=== PATIENT | female | born 1995 | race American Indian/Alaskan Native ===

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

== ENCOUNTER 2018-07-02 16:02 | Emergency (ER) | payer SELFPAY ==
[2018-07-02 17:30] LABS: Basophils % (Auto) 0.3 % (0.0-1.8); Eosinophils # (Auto) 0.4 K/mm3 (0.0-0.4); Eosinophils % (Auto) 5.5 % (0.0-4.3); Hematocrit 39.1 % (30.3-42.9); Hemoglobin 13.2 gm/dl (10.1-14.3); Lymphocytes # (Auto) 2.5 K/mm3 (1.2-5.4); Lymphocytes % (Auto) 32.8 % (13.4-35.0); Mean Corpuscular HGB Conc 34 % (30-34); Mean Corpuscular Hemoglobin 31 pg (28-32); Mean Corpuscular Volume 92 fl (79-97); Monocytes # (Auto) 0.6 K/mm3 (0.0-0.8); Monocytes % (Auto) 8.1 % (0.0-7.3); Platelet Count 237 K/mm3 (140-440); Red Blood Count 4.25 M/mm3 (3.65-5.03); Red Cell Distribution Width 12.5 % (13.2-15.2)
[2018-07-02 17:31] LABS: HCG Qualitative,Urine Negative (Negative)
[2018-07-02 17:33] LABS: Bilirubin,Urine NEG (Negative); Blood,Urine NEG (Negative); Color,Urine Yellow (Yellow); Mucus,Urine FEW /HPF; Protein,Urine <15 mg/dL mg/dL (Negative); Urobilinogen,Urine < 2.0 mg/dL (<2.0)
[2018-07-02 17:38] LABS: BUN/Creatinine Ratio 10; Blood Urea Nitrogen 7 mg/dL (7-17); Calcium 9.3 mg/dL (8.4-10.2); Hemolysis Index 11
--- NOTE | 2018-07-02 18:24 | Emergency Department Report ---
HPI - General Chief Complaint: Abdominal Pain Time Seen by Provider: 07/02/18 16:54 - HPI HPI: 22-year-old [place] female presents to the emergency department with some pelvic pain has been going on for intermittently over the past 3 weeks but worsening over the past few days. The patient says that she missed her last menstrual cycle but usually does have abnormal cycles. She denies any vaginal bleeding, vaginal discharge, dysuria, fever, nausea or vomiting. She denies being sexually active. She denies any other past medical history. She has not taken anything for her symptoms prior to presentation. No recent travel or sick contacts at home. ED Past Medical Hx - Past Medical History Hx Psychiatric Treatment: Yes (Anxiety) - Social History Smoking Status: Never Smoker Substance Use Type: None - Medications Home Medications: Home Medications Medication Instructions Recorded Confirmed Last Taken Type No Known Home Medications [No 07/02/18 07/02/18 Unknown History Reported Home Medications] ED Review of Systems ROS: Stated complaint: PELVIC PAIN/MISSED PERIOD Other details as noted in HPI Comment: All other systems reviewed and negative Constitutional: denies: chills, fever Eyes: denies: eye pain, eye discharge, vision change ENT: denies: ear pain, throat pain Respiratory: denies: cough, shortness of breath, wheezing Cardiovascular: denies: chest pain, palpitations Gastrointestinal: denies: nausea, vomiting Genitourinary: other (pelvic pain). denies: dysuria, discharge Musculoskeletal: denies: back pain, joint swelling, arthralgia Skin: denies: rash, lesions Neurological: denies: headache, weakness, paresthesias Physical Exam - Physical Exam Vital Signs: Vital Signs 07/02/18 16:06 Temperature 98.5 F Pulse Rate 64 Respiratory 16 Rate Blood Pressure 95/66 O2 Sat by Pulse 96 Oximetry Physical Exam: GENERAL: The patient is well-developed well-nourished. HENT: Normocephalic. Atraumatic. Patient has moist mucous membranes. EYES: Extraocular motions are intact. Pupils equal reactive to light bilaterally. NECK: Supple. Trachea is midline. CHEST/LUNGS: Clear to auscultation. There is no respiratory distress noted. HEART/CARDIOVASCULAR: Regular. There is no tachycardia. There is no murmur. ABDOMEN: Abdomen is soft. No abdominal tenderness to palpation but there is some pain to the upper pelvis. No guarding. Patient has normal bowel sounds. There is no abdominal distention. SKIN: Skin is warm and dry. NEURO: The patient is awake, alert, and oriented. The patient is cooperative. The patient has no focal neurologic deficits. The patient has normal speech. MUSCULOSKELETAL: There is no tenderness or deformity. There is no limitation range of motion. There is no evidence of acute injury. ED Course Vital Signs 07/02/18 16:06 Temperature 98.5 F Pulse Rate 64 Respiratory 16 Rate Blood Pressure 95/66 O2 Sat by Pulse 96 Oximetry ED Medical Decision Making - Lab Data Result diagrams: 07/02/18 17:07 07/02/18 17:07 - Radiology Data Radiology results: report reviewed EXAM: US TRANSVAGINAL HISTORY: pelvic pain TECHNIQUE: Transvaginal grayscale and color-flow imaging of the pelvis was performed. Comparison: Transabdominal study also performed today FINDINGS: The uterus measures 6.4 centimeters x 2.8 centimeters x 4.2 centimeters and is unremarkable in appearance. Endometrial thickness measures 14 millimeters. The right ovary measures 4.1 centimeters x 1.8 centimeters x 2.9 centimeters and is unremarkable in appearance. The left ovary measures 3.5 centimeters x 2.3 centimeters x 2.7 centimeters and contains a dominant follicle or possible corpus luteum cyst that measures approximately 1.7 centimeter in the maximal dimension. A trace amount of free fluid is demonstrated in the cul-de-sac. IMPRESSION: 1. Ultrasound pelvis within normal limits. Transcribed By: ED Dictated By: JIMMY MAYER MD Electronically Authenticated By: JIMMY MAYER MD Signed Date/Time: 07/02/182033 - Medical Decision Making This patient presents with some pelvic pain/cramping and having missed one of her menstrual cycles. However she normally has a typical menstrual cycles. This pain is usually what happens right before she starts having bleeding. Labs have been unremarkable including the fact that the patient is not . No significant urinary tract infection. Transvaginal/pelvic ultrasound does not show any torsion, fibroids, ovarian cysts, etiology of her discomfort or any other acute process. She will be discharged home to follow up with [facility]. Vital signs stable throughout her ED course. - Differential Diagnosis , UTI, fibroids, ovarian cyst, ovarian torsion Critical Care Time: No Critical care attestation.: If time is entered above; I have spent that time in minutes in the direct care of this critically ill patient, excluding procedure time. ED Disposition Clinical Impression: Pelvic pain, Abnormal menstrual cycle Disposition: TO HOME OR SELFCARE Is pt being admited?: No Condition: Stable Instructions: Dysmenorrhea (ED), Chronic Pelvic Pain in Women (ED) Additional Instructions: Please follow up with an [facility] in the next few days. I have given you multiple [facility] referrals in case you do not have one. Return to the emergency department if any worsening of your symptoms or any acute distress. Referrals: PRIMARY CARE, [Primary Care Provider] - 3-5 Days [facility] [Provider Group] - 3-5 Days [facility] [Provider Group] - 3-5 Days [facility] [Provider Group] - 3-5 Days Forms: Work/School Release Form(ED) Time of Disposition: 20:05
--- NOTE | 2018-07-02 20:31 | Ultrasound Report ---
FINAL REPORT EXAM: US PELVIC COMPLETE HISTORY: pelvic pain TECHNIQUE: Transabdominal grayscale imaging of the pelvis was performed. Comparison: Transvaginal study also performed today FINDINGS: The urinary bladder is decompressed which limits evaluation. The uterus and ovaries are not well visualized due to lack of distention of the urinary bladder. IMPRESSION: 1. The uterus and ovaries are not well visualized on the transabdominal study due to decompressed urinary bladder. Please see report of transvaginal study also performed today.
--- NOTE | 2018-07-02 20:35 | Ultrasound Report ---
FINAL REPORT EXAM: US TRANSVAGINAL HISTORY: pelvic pain TECHNIQUE: Transvaginal grayscale and color-flow imaging of the pelvis was performed. Comparison: Transabdominal study also performed today FINDINGS: The uterus measures 6.4 centimeters x 2.8 centimeters x 4.2 centimeters and is unremarkable in appearance. Endometrial thickness measures 14 millimeters. The right ovary measures 4.1 centimeters x 1.8 centimeters x 2.9 centimeters and is unremarkable in appearance. The left ovary measures 3.5 centimeters x 2.3 centimeters x 2.7 centimeters and contains a dominant follicle or possible corpus luteum cyst that measures approximately 1.7 centimeter in the maximal dimension. A trace amount of free fluid is demonstrated in the cul-de-sac. IMPRESSION: 1. Ultrasound pelvis within normal limits.
--- NOTE | 2018-07-02 21:13 | Emergency Department Report ---
Blank Doc - Documentation Documentation: Patient was signed out to me at 20:00 [address] results [address] fontana. . Ultrasound results showed unremarkable pelvic ultrasound and unremarkable transvaginal ultrasound. No pathology is noted on ultrasound. Will initiate discharge. Discussed all results with the patient. Patient is stable for discharge. Patient also given return to ER instructions. Patient instructed to follow up with [facility] in 2-3 days. Patient to return to your condition worsens. Patient voiced understanding of discharge instructions and all results. FINAL REPORT EXAM: US TRANSVAGINAL HISTORY: pelvic pain TECHNIQUE: Transvaginal grayscale and color-flow imaging of the pelvis was performed. Comparison: Transabdominal study also performed today FINDINGS: The uterus measures 6.4 centimeters x 2.8 centimeters x 4.2 centimeters and is unremarkable in appearance. Endometrial thickness measures 14 millimeters. The right ovary measures 4.1 centimeters x 1.8 centimeters x 2.9 centimeters and is unremarkable in appearance. The left ovary measures 3.5 centimeters x 2.3 centimeters x 2.7 centimeters and contains a dominant follicle or possible corpus luteum cyst that measures approximately 1.7 centimeter in the maximal dimension. A trace amount of free fluid is demonstrated in the cul-de-sac. IMPRESSION: 1. Ultrasound pelvis within normal limits. Transcribed By: ED Dictated By: JIMMY MAYER MD Electronically Authenticated By: JIMMY MAYER MD Signed Date/Time: 07/02/182033
[2018-07-02 21:33] VITALS: BP 115/78
== END 2018-07-02 21:32 | disposition home or self-care (01) ==
LOC: ED 16:02
DX: N92.6 Irregular menstruation, unspecified (principal); R10.2 Pelvic and perineal pain; F41.9 Anxiety disorder, unspecified
CPT/HCPCS: 36415; 76830; 76856; 80048; 81001; 81025; 85025